=== PATIENT | female | born 1945 | race Hispanic/Latino ===

== ENCOUNTER 2018-04-06 19:46 | Emergency (ER) | payer MEDICARE, OTHER ==
[2018-04-06 20:12] VITALS: RESP 18; TEMP 98.2; BMI 24.7
--- NOTE | 2018-04-06 20:19 | ED PDOC ---
Arrival/HPI - History of Present Illness Time/Duration: 4-6 hours Symptom Onset: Gradual Symptom Course: Improving Activities at Onset: Rest <Pawel Cobb - Last Filed: 04/06/18 21:54> - General Historian: Patient - History of Present Illness Time/Duration: 4-6 hours Symptom Onset: Gradual Symptom Course: Improving Activities at Onset: Rest Context: Home <Sulaiman Deshpande - Last Filed: 04/06/18 22:51> - General Chief Complaint: GI Problem Time Seen by Provider: 04/06/18 19:50 - History of Present Illness Narrative History of Present Illness (Text): 04/06/18 20:44 PGY-[address] Deshpande Ms. Bailey is a 73 year old female who presents with diarrhea and blood in the stool. The patient reports having diarrhea around noon today and noticed a small amount of blood mixed in with the stool. Pt reports she saw her PCP Dr. Ortiz about one week ago for a respiratory illness and was prescribed azithromycin which she has been taking every day. Today she started a new pack of antibiotics and was concerned that the antibiotics were causing her diarrhea. She denies having any other episodes of diarrhea or bloody stools. Pt denies any changes from her typical diet, had an syriac muffin for breakfast. She denies any recent travel. Patient has not had any abdominal pain, nausea, vomiting, fevers, or gross blood in the stool. 04/06/18 21:57 (Pawel Cobb) Past Medical History - Provider Review Nursing Documentation Reviewed: Yes <Pawel Cobb - Last Filed: 04/06/18 21:54> - Provider Review Nursing Documentation Reviewed: Yes - Travel History Have you recently traveled outside [place] w/in the past 3 mons?: No - Past History Past History: No Previous - Infectious Disease Hx of Infectious Diseases: None - Reproductive Menopause: Yes Currently : No - Cardiac Hx Cardiac Disorders: Yes Hx Hypertension: Yes Hx Pacemaker: No - Pulmonary Hx Respiratory Disorders: No - Neurological Hx Neurological Disorder: No Hx Paralysis: No - HEENT Hx HEENT Disorder: No - Renal Hx Renal Disorder: No - Endocrine/Metabolic Hx Endocrine Disorders: No - Hematological/Oncological Hx Blood Disorders: No Hx Blood Transfusions: No Hx Blood Transfusion Reaction: No - Integumentary Hx Dermatological Disorder: No - Musculoskeletal/Rheumatological Hx Musculoskeletal Disorders: No - Gastrointestinal Hx Gastrointestinal Disorders: No - Genitourinary/Gynecological Hx Genitourinary Disorders: No - Psychiatric Hx Psychophysiologic Disorder: No Hx Emotional Abuse: No Hx Physical Abuse: No Hx Substance Use: No - Surgical History Hx Cataract Extraction: Yes - Anesthesia Hx Anesthesia Reactions: No Hx Malignant Hyperthermia: No - Suicidal Assessment Feels Threatened In Home Enviroment: No <Sulaiman Deshpande - Last Filed: 04/06/18 22:51> Family/Social History Family/Social History: Unknown Family HX <RezaPawel - Last Filed: 04/06/18 21:54> - Physician Review Nursing Documentation Reviewed: Yes Smoking Status: Never Smoked Hx Alcohol Use: No (socially) Hx Substance Use: No Hx Substance Use Treatment: No <Sulaiman Deshpande - Last Filed: 04/06/18 22:51> Allergies/Home Meds <Pawel Cobb - Last Filed: 04/06/18 21:54> <Sulaiman Deshpande - Last Filed: 04/06/18 22:51> Allergies/Adverse Reactions: Allergies cefdinir Allergy (Verified 11/09/16 12:30) unknown colloidal bismuth subcitrate [From Pylera] Allergy (Verified 11/09/16 12:30) unknown metronidazole [From Pylera] Allergy (Verified 11/09/16 12:30) unknown tetracycline HCl [From Pylera] Allergy (Verified 11/09/16 12:30) unknown Home Medications: Home Meds Medication Instructions Recorded Confirmed Aspirin [Low Dose Aspirin] 81 mg PO QOTHERDAY 06/16/15 06/18/15 Enalapril Maleate [Vasotec] 5 mg PO DAILY 06/16/15 06/18/15 Review of Systems - Physician Review All systems were reviewed & negative as marked: Yes - Review of Systems Constitutional: Normal. absent: Fatigue, Weight Change Eyes: Normal. absent: Vision Changes, Photophobia ENT: absent: Sore Throat, Rhinorrhea Respiratory: Normal. absent: SOB, Cough, Wheezing Cardiovascular: Normal. absent: Chest Pain, Palpitations Gastrointestinal: Diarrhea, Other (+small amount blood in the stool this afternoon). absent: Abdominal Pain, Constipation, Nausea, Vomiting, Appetite Changes, Hematochezia, Hematemesis Genitourinary Female: absent: Dysuria, Frequency Musculoskeletal: absent: Arthralgias, Back Pain Skin: absent: Rash, Pruritis Neurological: absent: Headache, Dizziness <Pawel Cobb Last Filed: 04/06/18 21:54> - Physician Review All systems were reviewed & negative as marked: Yes <Sulaiman Deshpande Last Filed: 04/06/18 22:51> Physical Exam Appearance: Positive for: Well-Appearing, Non-Toxic Pain Distress: None Mental Status: Positive for: Alert and Oriented X 3 - Systems Exam Head: Present: Atraumatic, Normocephalic Pupils: Present: PERRL Extroacular Muscles: Present: EOMI Conjunctiva: Present: Normal Mouth: Present: Moist Mucous Membranes Nose (External): Present: Atraumatic Neck: Present: Normal Range of Motion. No: JVD Respiratory/Chest: Present: Clear to Auscultation, Good Air Exchange. No: Respiratory Distress, Accessory Muscle Use Cardiovascular: Present: Regular Rate and Rhythm, Normal S1, S2. No: Murmurs Abdomen: No: Tenderness, Distention, Normal Bowel Sounds, Peritoneal Signs, Rebound, Guarding, McBurney's Point Tender Upper Extremity: Present: Normal Inspection, NORMAL PULSES. No: Cyanosis, Edema Lower Extremity: Present: Normal Inspection, NORMAL PULSES. No: Edema Neurological: Present: GCS=15, CN II-XII Intact, Speech Normal Skin: Present: Warm, Dry, Normal Color. No: Rashes Psychiatric: Present: Alert, Oriented x 3 <Pawel Cobb Filed: 04/06/18 21:54> Vital Signs Reviewed: Yes Temperature: Afebrile Blood Pressure: Normal Pulse: Tachycardic Respiratory Rate: Normal <Sulaiman Deshpande Filed: 04/06/18 22:51> Vital Signs Temp Pulse Resp BP Pulse Ox 04/06/18 21:36 98.2 F 74 18 128/70 98 04/06/18 19:52 98.2 F 98 H 18 135/66 99 Medical Decision Making <Pawel Cobb Last Filed: 04/06/18 21:54> Re-evaluation Time: 22:40 Reassessment Condition: Re-examined, Improved - Lab Interpretations I have reviewed the lab results: Yes Interpretation: Abnormal lab values (decr Na/cl) <Sulaiman Deshpande Last Filed: 04/06/18 22:51> ED Course and Treatment: New onset diarrhea and bloody stools - ML benign 2/2 antibiotic use; Rule out: diverticulitis, ischemic bowel, appendicitis, bacterial gastroenteritis: * Labs: CBC, CMP, LFTs, VBG, stool cultures, stool ova and parasite, UA * 500 cc fluid bolus * Keep NPO 04/06/18 21:04 Rectal exam and stool guaiac test performed by myself in the presence of female furnace attendant Kerry Kolb Rectal exam - unremarkable Guiaic negative Case discussed with Dr. Ortiz over the phone, patient will follow up as outpatient with Dr. Ortiz tomorrow (Pawel Cobb) 04/06/18 20:00 Impression: 73 year old presents to the Emergency department for abdominal bloating and diarrhea x5 earlier today. Patient seen with the resident. I performed a physical exam of the patient and discussed their management with resident. I have reviewed the resident note and agree with the assessment and plan of care. Plan: -- Labs -- Stool culture --OVA and Parasite STAT -- IV fluids --Urinalysis -- Reassess and disposition Prior Visits: Notes and results from previous visits were reviewed. Progress Notes: pt remained comfortable NO ABD PAIN IS NOTED NO Diarrhea while patient is in the ED awaiting lab results 2219 pt remained comfortable abd is soft and NT/ND no diarrhea is noted while in the ED will contact Dr Ortiz 2224 Resident and I spoke with Dr Ortiz, made aware of pt's medical results, would request rectal exam, and if pt's vital signs are stable and pt without acute symptoms, pt can be discharged home with outpt f/u in the morning/tomorrow 2229 pt was rectalized, GUAIC - Negative pt remained comfortable pt is made aware of her medical results pt is encouraged bland diet pt is instructed NOT to take her abx pt is encouraged fluids pt will f/u as directed pt will be discharged home (Sulaiman Deshpande) - Lab Interpretations Narrative Lab Interpretation (Text): 04/06/18 22:31 Rectal exam and stool guaiac test performed by myself in the presence of female furnace attendant Kerry Kolb Rectal exam - unremarkable Guiaic negative Na: 130 Cl: 94 Lactate, AG negative (Pawel Cobb) Lab Results: 04/06/18 20:40 04/06/18 20:40 Lab Results 04/06/18 20:40: pO2 48, VBG pH 7.31 L, VBG pCO2 56.0, VBG HCO3 28.2 H, VBG Total CO2 29.9 H, VBG O2 Sat (Calc) 86.6 H, VBG Base Excess 0.8, VBG Potassium 4.0, Sodium 130.0 L, Chloride 97.0 L, Glucose 134 H, Lactate 1.5, FiO2 21.0, Venous Blood Potassium 4.0 04/06/18 20:40: Urine Color Light yellow, Urine Appearance Clear, Urine pH 6.0, Ur Specific Harleigh <= 1.005, Urine Protein Negative, Urine Glucose (UA) Negative, Urine Ketones Negative, Urine Blood Negative, Urine Nitrate Negative, Urine Bilirubin Negative, Urine Urobilinogen 0.2, Ur Leukocyte Esterase Trace H , Urine RBC Negative, Urine WBC 0 - 2, Ur Epithelial Cells None, Urine Bacteria Neg 04/06/18 20:40: WBC 7.4, RBC 3.71, Hgb 11.7 L, Hct 33.6 L, MCV 90.6, MCH 31.5, MCHC 34.8, RDW 12.8, Plt Count 220, MPV 10.0, Gran % 77.8 H, Lymph % (Auto) 15.2 L, Hodgeman % (Auto) 6.2 H, Eos % (Auto) 0.5 L, Baso % (Auto) 0.3, Gran # 5.74 , Lymph # (Auto) 1.1 L, Hodgeman # (Auto) 0.5, Eos # (Auto) 0.0, Baso # (Auto) 0.02 04/06/18 20:40: Sodium 130 L, Chloride 94 L, Potassium 3.9, Carbon Dioxide 27, Anion Gap 13, BUN 8, Creatinine 0.7, Est GFR ( Amer) > 60, Est GFR (Non- Af Amer) > 60, Random Glucose 128 H, Calcium 9.0, Total Bilirubin 0.4, AST 38 H , ALT 42, Alkaline Phosphatase 73, Total Protein 6.7, Albumin 4.2, Globulin 2.6 , Albumin/Globulin Ratio 1.6 - Medication Orders Current Medication Orders: Discontinued Medications Sodium Chloride (Sodium Chloride 0.9%) 500 mls @ 999 mls/hr IV .Q31M STA Stop: 04/06/18 21:06 Last Admin: 04/06/18 20:45 Dose: 999 mls/hr eMAR Start Stop Document 04/06/18 20:45 LA (Rec: 04/06/18 20:46 LA [facility] [id number]) Intravenous Solution Start Date 04/06/18 Start Time 20:45 End Date 04/06/18 End time 21:16 Total Infusion Time 31 <Pawel Cobb - Last Filed: 04/06/18 21:54> - Scribe Statement The provider has reviewed the documentation as recorded by the Scribe <Sulaiman Deshpande - Last Filed: 04/06/18 22:51> - Scribe Statement Adriana Bazzi All medical record entries made by the Scribe were at my direction and personally dictated by me. I have reviewed the chart and agree that the record accurately reflects my personal performance of the history, physical exam, medical decision making, and the department course for this patient. I have also personally directed, reviewed, and agree with the discharge instructions and disposition. (Sulaiman Deshpande) Disposition/Present on Arrival - Present on Arrival Any Indicators Present on Arrival: No - Disposition Have Diagnosis and Disposition been Completed?: Yes Disposition Time: 22:34 Patient Plan: Discharge (follow up as outpatient) <SofiazaraPawel - Last Filed: 04/06/18 21:54> - Present on Arrival Any Indicators Present on Arrival: No History of DVT/PE: No History of Uncontrolled Diabetes: No Urinary Catheter: No History of Decub. Ulcer: No History Surgical Site Infection Following: None <JeramySulaiman - Last Filed: 04/06/18 22:51> - Disposition Diagnosis: Diarrhea, Dehydration Disposition: HOME/ ROUTINE Patient Problems: Current Active Problems Problem Status Onset Diarrhea Acute Condition: STABLE Discharge Instructions (ExitCare): Diarrhea in Adolescents and Adults, Curtis Diet Print Language: PAKISTANI Additional Instructions: Make sure to see your doctor in 1-2 days DRINK PLENTY OF FLUIDS take your medications as prescribed RETURN TO ED IF worse pain, cant breath, persistent vomiting, high fever >101- 102 for hours, altered behavior, slurr speech, facial changes, focal weakness ( arm/leg or both), unable to urinate, heavy/persistent bleeding, passing out, chest pain, or other medical emergencies Referrals: [facility] [Outside] - Follow up with primary [facility] [Outside] - Follow up with primary [facility] [place] [Outside] - Follow up with primary Panda Ortiz MD [Family Provider] - Follow up with primary Forms: [employer] (Samoan)
[2018-04-06] MEDS ORDERED: Sodium Chloride 0.9% 500 ML IV STA (20:36)
[2018-04-06 21:31] LABS: BASO # 0.02 K/mm3 (0.0-2.0); BASO % 0.3 % (0.0-3.0); EOS % 0.5 % (1.5-5.0); GRAN # 5.74 (1.4-6.5); GRAN % 77.8 % (50.0-68.0); HEMOGLOBIN 11.7 g/dL (12.0-16.0); LYMPH # 1.1 (1.2-3.4); LYMPH % 15.2 % (22.0-35.0); MEAN CELL VOLUME 90.6 fl (80.0-105.0); MEAN CORPUSCULAR HEMOGLOBIN 31.5 pg (25.0-35.0); MEAN CORPUSCULAR HGB CONC 34.8 g/dl (31.0-37.0); MONO # 0.5 (0.1-0.6); MONO % 6.2 % (1.0-6.0); RBC 3.71 10^6/uL (3.5-6.1); RED CELL DISTRIBUTION WIDTH 12.8 % (11.5-14.5); WHITE BLOOD COUNT 7.4 10^3/ul (4.5-11.0)
[2018-04-06 21:35] LABS: URINE APPEARANCE CLEAR (CLEAR); URINE BILIRUBIN NEGATIVE (NEGATIVE); URINE BLOOD NEGATIVE (NEGATIVE); URINE COLOR LIGHT YELLOW (YELLOW); URINE GLUCOSE (UA) NEGATIVE (NEGATIVE); URINE LEUKOCYTE ESTERASE TRACE Leu/uL (NEGATIVE); URINE PROTEIN NEGATIVE mg/dL (<30 mg/dL); URINE UROBILINOGEN 0.2 E.U./dL (<1 E.U./dL)
[2018-04-06 21:39] LABS: VENOUS BLOOD GAS BASE EXCESS 0.8 mmol/L (0.0-2.0); VENOUS BLOOD GAS PO2 48 mm/Hg (30-55); VENOUS BLOOD PH 7.31 (7.32-7.43)
[2018-04-06 21:42] LABS: ALB/GLOB RATIO 1.6 (1.1-1.8); ALBUMIN 4.2 g/dL (3.0-4.8); ALT/SGPT 42 U/L (7-56); AST/SGOT 38 U/L (14-36); BLOOD UREA NITROGEN 8 mg/dL (7-21); GFR AFRICAN-AMERICAN > 60; GFR NON-AFRICAN AMERICAN > 60
[2018-04-06 21:51] LABS: URINE BACTERIA NEG (NEG); URINE RBC NEGATIVE /hpf (0-2); URINE WBC 0 - 2 /hpf (0-6)
[2018-04-06 22:50] VITALS: BP 120/68; PULSE 70; O2SAT 100
== END 2018-04-06 22:54 | disposition home or self-care (01) ==
LOC: ED 19:46
DX: E86.0 Dehydration (principal); R19.7 Diarrhea, unspecified; I10 Essential (primary) hypertension
CPT/HCPCS: 80053; 81001; 82803; 85025; 87086; 96360; 99284; J7040